=== PATIENT | male | born 1960 | race Caucasian/White ===

== ENCOUNTER 2022-04-03 02:01 | Day surgery (SDC) | payer OTHER, SELFPAY ==
[2022-03-19 13:55] VITALS: BMI 27.8
[2022-04-03 06:48] VITALS: BP 140/86; PULSE 69; RESP 18; TEMP 36.2; O2SAT 98; BMI 27.8
[2022-04-03] MEDS: LACTATED RINGERS 1,000 ML 150 ML IV CONT (07:07)
--- NOTE | 2022-04-03 07:20 | P.CONGI_ITS ---
Assessment and Plan Assessment and plan (1) Screening for colon cancer: Code(s): Z12.11 - Encounter for screening for malignant neoplasm of colon Status: Acute Assessment and Plan: Patient presents today for screening colonoscopy. He appears to be at average risk for colon polyps. GI Consult Note Consult date/time: 04/03/22 07:20 Reason for consult: Neoplasia screening HPI: Jay Coronado is a 62 year old male presents for screening colonoscopy. Patient's current weight appetite bowel movements are normal. Patient denies abdominal pain. He has had no bleeding. Family history is noncontributory. Patient presents today for screening colonoscopy. Review of Systems Review of Systems: Noncontributory review of systems [facility] Past Medical History Medical History Asthma Trigger finger Surgery 12/2021 Family History Family History Father Heart disease Social History Social History Smoking status: Former smoker Tobacco type: cigarettes Smoking end date: 10/07/96 Alcohol intake: current Drinks per week: 12 Living arrangements: with family Spiritual care concerns: No Meds Home Medications and Allergies Home Medications Medication Instructions Recorded Confirmed Type atorvastatin 10 mg tablet 10 mg PO .HS #30 tabs 01/02/22 04/03/22 Rx Allergies Allergy/AdvReac Type Severity Reaction Status Date / Time No Known Allergies Allergy Verified 04/03/22 06:57 Vital Signs Vital Signs - 24 hr 04/03/22 06:48 Temperature 97.2 F L Pulse Rate 69 Respiratory Rate 18 Blood Pressure 140/86 Pulse Oximetry 98 Oxygen Delivery Room Air Exam Narrative: physical exam reveals patient to be alert. Vital signs stable. HEENT exam is unremarkable. Patient is anicteric. Lungs are clear to auscultation and percussion. Heart is without murmur or extra sounds. Abdominal exam bowel sounds are present soft nontender with no organomegaly. Digital external rectal exam is normal.
--- NOTE | 2022-04-03 07:31 | P.PNAN_ITS ---
Anes - Initial Pre Proc Eval Procedure: Operation Date: 04/03/22 08:00 Proposed Procedures p Screening Colonoscopy - Ian Cash MD Date/Time: 04/03/22 07:31 Surgeon: Ian Cash MD Pre Op Diagnosis: neoplasm screening Patient Data Age: 62 Gender: M Height: 1.83 m Weight: 93.3 kg Last Vital Signs Temp 97.2 F L 04/03/22 06:48 Pulse 69 04/03/22 06:48 Resp 18 04/03/22 06:48 BP 140/86 04/03/22 06:48 Pulse Ox 98 04/03/22 06:48 O2 Del Method Room Air 04/03/22 06:48 Allergies Allergy/AdvReac Type Severity Reaction Status Date / Time No Known Allergies Allergy Verified 04/03/22 06:57 Home Medications Medication Instructions Recorded Confirmed Type atorvastatin 10 mg tablet 10 mg PO .HS #30 tabs 01/02/22 04/03/22 Rx Patient hx anesthesia problems: none Family hx anesthesia problems: none Results Review: All pre-operative results and documents have been reviewed as part of the pre- operative evaluation. [facility] Past Medical History Medical History Asthma Trigger finger Surgery 12/2021 Family History Family History Father Heart disease Social History Social History Smoking status: Former smoker Tobacco type: cigarettes Smoking end date: 10/07/96 Alcohol intake: current Drinks per week: 12 Living arrangements: with family Spiritual care concerns: No Anes - Eval Final PreProcedure Day of Procedure 04/03/22 07:31 Patient weight: overweight Heart: regular rate and rhythm Lungs: clear to auscultation Airway: Mallampati scale class II Neurological: alert and oriented Last oral intake: >/= 8 hours ASA classification: II Emergent: no Anesthetic plan: proceed Anesthesia type and monitoring: general GIVS and standard monitoring Results Review: All pre-operative results and documents have been reviewed as part of the pre- operative evaluation. Informed Consent: The patient's anesthetic plan and its attendant risks and benefits were discussed with the patient/family/POA. Questions were solicited and answers provided to the satisfaction of the patient/family/POA.
[2022-04-03 08:11] VITALS: BP 114/71; PULSE 53; RESP 17; O2SAT 95
[2022-04-03 08:21] VITALS: BP 119/81; PULSE 53; RESP 23; O2SAT 99
[2022-04-03 08:31] VITALS: BP 129/85; PULSE 52; RESP 19; O2SAT 98
== END 2022-04-03 08:47 | disposition home or self-care (01) ==
PROVIDERS: PCP Internal Medicine; Visit Provider Internal Medicine Gastroenterology
PROC: 0DJD8ZZ Inspection of Lower Intestinal Tract, Via Natural or Artificial Opening Endoscopic (ICD-10-PCS; CPT 45378; principal; 2022-04-03 08:00)
DX: Z12.11 Encounter for screening for malignant neoplasm of colon (principal); K64.8 Other hemorrhoids; Z87.891 Personal history of nicotine dependence
CPT/HCPCS: 45378; J2704; J7120

== ENCOUNTER 2024-05-18 09:35 | Outpatient (CLI) | payer OTHER, SELFPAY ==
--- NOTE | ~2024-05-18 | NM_ITS ---
EXAMINATION: NM stephanie stress w perfusion DATE: 05/18/2024 11:40 INDICATION: Chest pain. Shortness of breath. TECHNIQUE: Rest images were obtained following intravenous administration of 9.2 mCi Tc99m tetrofosmi n (Myoview). The patient was infused intravenously with Lexiscan (regadenoson). Then, 29.4 mCi Tc99m tetrofosmin (Myoview) was administered intravenously, and stress images were obtained. Data was recon structed into short axis and horizontal and vertical long axis SPECT images. Gated SPECT images were also obtained. COMPARISON: None. FINDINGS: There is no definite reversible or fixed perfusion abnormality to suggest ischemia or infar ction. There is no segmental wall motion abnormality. Left ventricular ejection fraction measures > 70%. IMPRESSION: 1. No definite ischemia or infarct. 2. Normal left ventricular ejection fraction measuring >70%. Reviewed, dictated and finalized at location A.
--- NOTE | 2024-05-18 10:07 | EST_ITS ---
Patient Info Name: Jay Coronado Age: 64 years : 1960 Gender: Male Ht: 72 in Wt: 226 lbs BSA: 2.31 m2 HR: 52 bpm BP: 120 / 76 mmHg Heart Rhythm: Sinus Rhythm Exam Date: 05/18/2024 10:59 AM Exam Location: Echo Lab Patient Status: Outpatient Admit Date: 05/18/2024 Staff Ordering Physician: Karolyn López Attending Provider: Karolyn López Exercise Technologist: Arina Be CT Exercise Physician: Kirit Cano DO Exam Type: CA stress test treadmill w NM Study Info Indications R06.02 - Shortness of breath R07.89 - Other chest pain A nuclear stress test was performed. Summary 1. 1. Negative Christian exercise stress test for ischemic ST changes by ECG criteria. 2. 2. Reduced functional capacity, achieving 8 METs of workload. 3. 3. Hypertensive response to exercise. 4. 4. Appropriate HR response to exercise. 5. 5. Appropriate HR recovery at 1 minute post exercise. 6. 6. Nuclear scan to follow and will be reported separately. Please correlate with it. 7. 7. Patient informed of the above results. Protocol: Christian Stress ECG Details Stage: REST Duration (min): 1 min : 25 sec Speed (mph): 0.0 Grade (%): 0 HR (bpm): 52 SBP (mmHg): --- DBP (mmHg): --- METS: --- Stage: REST Duration (min): 5 min : 38 sec Speed (mph): 0.0 Grade (%): 0 HR (bpm): 53 SBP (mmHg): --- DBP (mmHg): --- METS: --- Stage: STAGE 1 Duration (min): 1 min : 0 sec Speed (mph): 1.7 Grade (%): 10 HR (bpm): 80 SBP (mmHg): --- DBP (mmHg): --- METS: --- Stage: STAGE 1 Duration (min): 2 min : 0 sec Speed (mph): 1.7 Grade (%): 10 HR (bpm): 92 SBP (mmHg): --- DBP (mmHg): --- METS: --- Stage: STAGE 1 Duration (min): 3 min : 0 sec Speed (mph): 1.7 Grade (%): 10 HR (bpm): 101 SBP (mmHg): 148 DBP (mmHg): 70 METS: --- Stage: STAGE 2 Duration (min): 1 min : 0 sec Speed (mph): 2.5 Grade (%): 12 HR (bpm): 111 SBP (mmHg): 148 DBP (mmHg): 70 METS: --- Stage: STAGE 2 Duration (min): 2 min : 0 sec Speed (mph): 2.5 Grade (%): 12 HR (bpm): 120 SBP (mmHg): 185 DBP (mmHg): 63 METS: --- Stage: STAGE 2 Duration (min): 3 min : 0 sec Speed (mph): 2.5 Grade (%): 12 HR (bpm): 129 SBP (mmHg): 185 DBP (mmHg): 63 METS: --- Stage: STAGE 3 Duration (min): 0 min : 30 sec Speed (mph): 3.4 Grade (%): 14 HR (bpm): 134 SBP (mmHg): 185 DBP (mmHg): 63 METS: --- Stage: RECOVERY Duration (min): 0 min : 29 sec Speed (mph): 0.0 Grade (%): 0 HR (bpm): 137 SBP (mmHg): 185 DBP (mmHg): 63 METS: --- Stage: RECOVERY Duration (min): 1 min : 29 sec Speed (mph): 0.0 Grade (%): 0 HR (bpm): 131 SBP (mmHg): 185 DBP (mmHg): 63 METS: --- Stage: RECOVERY Duration (min): 2 min : 29 sec Speed (mph): 0.0 Grade (%): 0 HR (bpm): 119 SBP (mmHg): 216 DBP (mmHg): 79 METS: --- Stage: RECOVERY Du
== END 2024-05-18 09:36 | disposition home or self-care (01) ==
PROVIDERS: PCP Internal Medicine; Visit Provider Clinical Nurse Specialist
DX: R07.9 Chest pain, unspecified (principal); R06.02 Shortness of breath
CPT/HCPCS: 78452; 93017; A9502